=== PATIENT | female | born 1980 | race Caucasian/White ===

== ENCOUNTER 2018-03-11 18:40 | Emergency (ER) | payer OTHER ==
[~2018-03-11] VITALS: Ht 152.4 cm; Wt 70.3 kg
[2018-03-11 18:42] VITALS: BP_SYST 120
[2018-03-11] MEDS ORDERED: NACL 0.9% 1,000 ML IV ONE (19:00)
[2018-03-11 19:35] LABS: BASOPHILS # (AUTO) 0.1 K/uL (0.0-0.2); BASOPHILS % (AUTO) 1.6 % (0.0-2.0); EOSINOPHILS # (AUTO) 0.3 K/uL (0.0-0.4); HEMOGLOBIN 10.9 g/dL (12.0-16.0); LYMPHOCYTES # (AUTO) 1.5 K/uL (1.0-5.5); LYMPHOCYTES % (AUTO) 25.5 % (20.5-51.5); MEAN CORPUSCULAR HEMOGLOBIN 27 pg (27-31); MEAN CORPUSCULAR HGB CONC 33 % (32-36); MEAN CORPUSCULAR VOLUME 82 fL (79.0-98.0); MONOCYTES # (AUTO) 0.3 K/uL (0.0-1.0); MONOCYTES % (AUTO) 5.1 % (1.7-9.3); NEUTROPHILS # (AUTO) 3.5 K/uL (1.8-7.7); NEUTROPHILS % (AUTO) 62.8 % (40.0-70.0); PLATELET COUNT (AUTO) 280 K/uL (130-430); RED BLOOD CELL COUNT(AUTO) 4.04 MIL/uL (4.2-6.2); RED CELL DISTRIBUTION WIDTH 14.2 % (9.0-15.0); WHITE BLOOD COUNT (AUTO) 5.7 K/uL (4.8-10.8)
[2018-03-11 19:57] LABS: CREATININE 0.64 mg/dL (0.55-1.30); POTASSIUM 3.5 mmol/L (3.5-5.1)
[2018-03-11 20:03] LABS: ALBUMIN 3.8 g/dL (3.4-4.8); TOTAL BILIRUBIN 0.4 mg/dL (0.0-1.0)
[2018-03-11] MEDS ORDERED: ACETAMINOPHEN 500 MG TABLET PO ONE (21:30)
[2018-03-11 21:50] VITALS: BP_SYST 118
== END 2018-03-11 21:50 | disposition home or self-care (01) ==
LOC: SED 18:40
DX: T67.5XXA Heat exhaustion, unspecified, initial encounter (principal); S09.90XA Unspecified injury of head, initial encounter; R55 Syncope and collapse; J45.909 Unspecified asthma, uncomplicated; X30.XXXA Exposure to excessive natural heat, initial encounter; Y93.89 Activity, other specified; Y92.89 Other specified places as the place of occurrence of the external cause; Y99.8 Other external cause status
CPT/HCPCS: 36415; 70450; 71045; 80053; 82550; 85025; 93005; 96360; 99285; J7030

== ENCOUNTER 2018-03-18 18:08 | Inpatient (IN) | payer MEDICAID, OTHER ==
[~2018-03-18] VITALS: Ht 152.4 cm; Wt 69.4 kg
[2018-03-18 18:17] VITALS: BP_SYST 123
--- NOTE | 2018-03-18 18:17 | NUR ---
Placed in room 2. Placed on cardiac technologist, blood pressure machine and pulse oximeter. To gown for exam. Side rails up. Report given to Lisa ZAIDI.
--- NOTE | 2018-03-18 18:20 | NUR ---
Pt brought by self,A&Ox4, pt presents to ER with non-raditing chest tightness ,dizziness and palpitations since today, VS WNL, respirations even and unlabored, cap refill <3,VS WNL
--- NOTE | 2018-03-18 19:00 | NUR ---
Dr Cisneros at bedside examining patient
--- NOTE | 2018-03-18 19:15 | NUR ---
Medication reconciliation completed with information provided by Patient. Any prior medication reconciliation on file was reviewed and corrected.
[2018-03-18 19:19] LABS: BASOPHILS % (AUTO) 0.8 % (0.0-2.0); EOSINOPHILS # (AUTO) 0.1 K/uL (0.0-0.4); EOSINOPHILS % (AUTO) 1.6 % (0.0-4.0); HEMOGLOBIN 10.8 g/dL (12.0-16.0); LYMPHOCYTES % (AUTO) 19.5 % (20.5-51.5); MEAN CORPUSCULAR HEMOGLOBIN 27 pg (27-31); MEAN CORPUSCULAR HGB CONC 33 % (32-36); MEAN CORPUSCULAR VOLUME 81 fL (79.0-98.0); MONOCYTES # (AUTO) 0.3 K/uL (0.0-1.0); MONOCYTES % (AUTO) 5.9 % (1.7-9.3); NEUTROPHILS # (AUTO) 3.8 K/uL (1.8-7.7); NEUTROPHILS % (AUTO) 72.2 % (40.0-70.0); PLATELET COUNT (AUTO) 210 K/uL (130-430); RED BLOOD CELL COUNT(AUTO) 4.06 MIL/uL (4.2-6.2); RED CELL DISTRIBUTION WIDTH 14.6 % (9.0-15.0); WHITE BLOOD COUNT (AUTO) 5.2 K/uL (4.8-10.8)
--- NOTE | 2018-03-18 19:30 | NUR ---
Patient states she is full code.
[2018-03-18 19:34] LABS: CALCIUM 9.1 mg/dL (8.4-11.0); CREATININE 0.69 mg/dL (0.55-1.30); POTASSIUM 3.3 mmol/L (3.5-5.1)
--- NOTE | 2018-03-18 19:37 | NUR ---
Patient will be admitted to care of Dr. Yusuf. Admitted to Telemetry unit. Will go to room 130 A. Belongings list completed. Summary report printed. Report will be given at bedside.
[2018-03-18 19:39] LABS: TOTAL BILIRUBIN 0.2 mg/dL (0.0-1.0)
--- NOTE | 2018-03-18 20:27 | NUR ---
ADMISSION NOTE Received patient from ER via gurney. Patient admitted with diagnosis of Chest pain. Patient is awake, alert, oriented X 4. Patient oriented to hospital room, call light, toileting, pain management and safety-teach back done. Patient informed that DYAN Irwin will be her nurse and that her room number is 130-B. Personal belongings checked and Belongings List documented. Call light within reach.
[2018-03-18 20:40] VITALS: BP_SYST 114
[2018-03-18] MEDS ORDERED: POTASSIUM CHLORIDE 20 MEQ TAB.PRT.SR PO PRN (21:00)
[2018-03-18] MEDS ORDERED: ACETAMINOPHEN 325 MG TABLET PO PRN (21:00)
[2018-03-18] MEDS ORDERED: DOCUSATE SODIUM 100 MG CAPSULE PO PRN (21:00)
[2018-03-18] MEDS ORDERED: MORPHINE 2 MG/ML INJ. SYRINGE IVP PRN ×2 (21:00)
[2018-03-18] MEDS ORDERED: ONDANSETRON HCL 4 MG/2 ML VIAL IVP PRN (21:00)
[2018-03-18] MEDS ORDERED: LORazepam 2 MG/ML VIAL IVP PRN (21:00)
[2018-03-18] MEDS ORDERED: ZOLPIDEM TARTRATE 5 MG TABLET PO PRN (21:00)
[2018-03-18] MEDS ORDERED: MAGNESIUM SULFATE 50 ML IV PRN (21:00)
[2018-03-18] MEDS ORDERED: MUPIROCIN 2% TOPICAL OINTMENT 22 GM NS PRN (21:00)
--- NOTE | 2018-03-18 22:27 | NUR ---
CONSULTATION PAGED/CALLED Reason for Consultation: CHEST PAIN Person Who was Notified:NAM Consulting Physician: ZAID Head Turning Machine Operator Specialty: CARDIO Ordering Physician: UMAIR
--- NOTE | 2018-03-18 22:30 | NUR ---
Rounds/Pain mgmt/ K+ 3.3 Pt resting in bed c/o posterior headache 02/11 medicated with Tylenol PO as needed. Potassium 3.3 medicated with K-dur 40meq per md order. Heparin SQ given as ordered, explained to pt indication and possible side effect, pt verbalized understanding. Encouraged pt to use call light for assistance to bathroom, pt agreeable. Bed low/locked, Bed alarm on. Call light within reach. To monitor.
[2018-03-18] MEDS: HEPARIN SODIUM,PORCINE 5000 UNITS/ML VIAL SUBCUT SCH (22:33)
--- NOTE | 2018-03-19 00:15 | NUR ---
Rounds Pt asleep. No s/s distress or discomfort noted. Call light within reach. To monitor.
[2018-03-19 00:27] VITALS: BP_SYST 99
--- NOTE | 2018-03-19 04:20 | NUR ---
Rounds/Bathroom Pt awake, assisted to the bathroom. Pt voided. Pt denies any dizziness or sob. Call light within reach. Will continue to monitor.
--- NOTE | 2018-03-19 06:00 | NUR ---
Closing notes Pt awake. No s/s distress noted. Pt denies any pain at this time. IV L.AC 20G saline lock clear, patent. All needs met. Call light within reach. To endorse to am nurse.
[2018-03-19 06:50] LABS: ANION GAP 5 (5-15); CALCIUM 8.8 mg/dL (8.4-11.0); CHLORIDE 105 mmol/L (98-107); CREATININE 0.68 mg/dL (0.55-1.30); GLUCOSE 84 mg/dL (70-99); SODIUM SERUM 136 mmol/L (136-145); UREA NITROGEN, BLOOD 11 mg/dL (8-21)
[2018-03-19 06:51] LABS: GFR AFRICAN AMERICAN 126 mL/min (>90)
[2018-03-19 06:52] LABS: BASOPHILS # (AUTO) 0.2 K/uL (0.0-0.2); EOSINOPHILS # (AUTO) 0.3 K/uL (0.0-0.4); MONOCYTES # (AUTO) 0.3 K/uL (0.0-1.0); RED BLOOD CELL COUNT(AUTO) 4.38 MIL/uL (4.2-6.2); RED CELL DISTRIBUTION WIDTH 14.4 % (9.0-15.0)
[2018-03-19 07:06] LABS: BASOPHILS % (AUTO) 4.1 % (0.0-2.0); HEMATOCRIT 35.9 % (36-48); HEMOGLOBIN 12.1 g/dL (12.0-16.0); LYMPHOCYTES # (AUTO) 1.3 K/uL (1.0-5.5); LYMPHOCYTES % (AUTO) 32.5 % (20.5-51.5); MEAN CORPUSCULAR HEMOGLOBIN 28 pg (27-31); MEAN CORPUSCULAR HGB CONC 34 % (32-36); MEAN CORPUSCULAR VOLUME 82 fL (79.0-98.0); MONOCYTES % (AUTO) 7.2 % (1.7-9.3); NEUTROPHILS # (AUTO) 1.9 K/uL (1.8-7.7); NEUTROPHILS % (AUTO) 48.2 % (40.0-70.0); PLATELET COUNT (AUTO) 209 K/uL (130-430)
--- NOTE | 2018-03-19 07:25 | NUR ---
AM ROUNDS: PATIENT AWAKE ON THE BED. BEDSIDE REPORT GIVEN BY NIGHT NURSE ALCRIA. CALL LIGHT WITH IN REACH. BED LOCKED AT LOWEST POSITION. DENIES ANY CHEST PAIN THIS TIME.STABLE.
[2018-03-19 08:28] VITALS: BP_SYST 111
[2018-03-19] MEDS: HEPARIN SODIUM,PORCINE 5000 UNITS/ML VIAL SUBCUT SCH ×2 (08:34→20:28)
--- NOTE | 2018-03-19 08:37 | NUR ---
dvt: due heparin 5000 units subq given as ordered. no complications noted.
[2018-03-19] MEDS ORDERED: busPIRone HCL 5 MG TABLET PO ONE (11:00)
[2018-03-19 11:07] LABS: CHOLESTEROL 134 mg/dL (<200); HDL CHOLESTEROL 50 mg/dL (>55); LDL CHOLESTEROL 78 mg/dL (<100); TRIGLYCERIDES 59 mg/dL (30-150)
[2018-03-19 11:18] VITALS: BP_SYST 124
--- NOTE | 2018-03-19 12:12 | NUR ---
RN ROUNDS: PATIENT HAVING LUNCH. TOOK HER BUSPAR PO WITH OUT COMPLICATIONS,UNDERSTANDS THE INSTRUCTIONS.
[2018-03-19 15:05] VITALS: BP_SYST 121
--- NOTE | 2018-03-19 15:30 | NUR ---
RN ROUNDS: RESTING. NO COMPLAINED MADE. CONTINUE TO MONITOR FOR ANY CHEST PAIN.
--- NOTE | 2018-03-19 16:32 | NUR ---
Case mgt: Insurance changed to [employer] presumptive per Paty in admitting. SELINA ZAIDI
--- NOTE | 2018-03-19 18:40 | NUR ---
CLOSING NOTES: STABLE. PATIENT DENIES ANY CHEST PAIN. CALL LIGHT WITH IN REACH. BED LOCKED AT LOWEST POSITION.
--- NOTE | 2018-03-19 19:05 | NUR ---
OPENING NOTES Bedside report received from day shift nurse. Patient received lying in bed, watching TV, AOx4, denies any pain at this time. No s/s of acute distress noted. Breathing even and unlabored. Call light with patient, instructed to call for any assistance, patient verbalized understanding. Bed alarm is off per patient's request. Patient educated on its purpose but patient still refuses. Will continue to monitor.
[2018-03-19 20:00] VITALS: BP_SYST 100
[2018-03-19] MEDS: busPIRone HCL 5 MG TABLET PO SCH (20:26)
--- NOTE | 2018-03-19 21:00 | NUR ---
ROUNDS Patient in bed at this time, watching TV. No s/s of acute distress, patient denies any pain at this time. Breathing is even and unlabored. Call light with patient. All needs met at this time. Will continue to monitor.
--- NOTE | 2018-03-19 23:00 | NUR ---
ROUNDS Patient in bed sleeping at this time. No s/s of acute distress. Breathing is even and unlabored. Call light with patient. Will continue to monitor.
[2018-03-20 00:34] VITALS: BP_SYST 98
--- NOTE | 2018-03-20 01:00 | NUR ---
ROUNDS Patient in bed sleeping comfortably. No signs of discomfort noted. Chest rise and fall even bilaterally. Call light with patient. Will continue to monitor.
--- NOTE | 2018-03-20 03:00 | NUR ---
ROUNDS Patient in bed sleeping comfortably. No signs of discomfort noted. Chest rise and fall even bilaterally. Call light with patient. Bed alarm on. Will continue to monitor.
[2018-03-20 04:30] LABS: BASOPHILS # (AUTO) 0.1 K/uL (0.0-0.2); BASOPHILS % (AUTO) 2.2 % (0.0-2.0); EOSINOPHILS # (AUTO) 0.6 K/uL (0.0-0.4); EOSINOPHILS % (AUTO) 11.3 % (0.0-4.0); HEMATOCRIT 37.1 % (36-48); HEMOGLOBIN 12.3 g/dL (12.0-16.0); LYMPHOCYTES # (AUTO) 1.6 K/uL (1.0-5.5); LYMPHOCYTES % (AUTO) 31.1 % (20.5-51.5); MEAN CORPUSCULAR HEMOGLOBIN 27 pg (27-31); MEAN CORPUSCULAR HGB CONC 33 % (32-36); MEAN CORPUSCULAR VOLUME 82 fL (79.0-98.0); MONOCYTES # (AUTO) 0.4 K/uL (0.0-1.0); MONOCYTES % (AUTO) 7.3 % (1.7-9.3); NEUTROPHILS # (AUTO) 2.4 K/uL (1.8-7.7); NEUTROPHILS % (AUTO) 48.1 % (40.0-70.0); PLATELET COUNT (AUTO) 214 K/uL (130-430); RED BLOOD CELL COUNT(AUTO) 4.54 MIL/uL (4.2-6.2); RED CELL DISTRIBUTION WIDTH 14.4 % (9.0-15.0)
[2018-03-20 04:36] LABS: ANION GAP 8 (5-15); CALCIUM 8.8 mg/dL (8.4-11.0); CHLORIDE 104 mmol/L (98-107); CREATININE 0.71 mg/dL (0.55-1.30); GLUCOSE 84 mg/dL (70-99); POTASSIUM 3.8 mmol/L (3.5-5.1); SODIUM SERUM 138 mmol/L (136-145); UREA NITROGEN, BLOOD 15 mg/dL (8-21)
[2018-03-20 04:42] LABS: WHITE BLOOD COUNT (AUTO) 5.1 K/uL (4.8-10.8)
[2018-03-20 04:50] LABS: GFR AFRICAN AMERICAN 120 mL/min (>90)
--- NOTE | 2018-03-20 05:00 | NUR ---
ROUNDS Patient in bed sleeping at this time. No s/s of acute distress noted. Breathing is even and unlabored. Call light with patient. Bed alarm on. Will continue to monitor.
--- NOTE | 2018-03-20 06:58 | NUR ---
CLOSING NOTES Patient in bed sleeping at this time. No s/s of acute distress. No complaints of pain throughout shift. Breathing even and unlabored. All of patient's needs met throughout shift. Fall and safety precautions maintained throughout shift. Will continue to monitor until patient care is endorsed to oncoming day shift nurse.
--- NOTE | 2018-03-20 08:00 | NUR ---
AM ROUNDS: PATIENT SITTING ON THE CHAIR.DENIES ANY CHEST PAIN. WAITING FOR MD TO EVALUATE HER TODAY,POSSIBLE DC HOME WHEN STABLE.
[2018-03-20 08:05] VITALS: BP_SYST 114
[2018-03-20] MEDS: busPIRone HCL 5 MG TABLET PO SCH (08:48)
--- NOTE | 2018-03-20 08:49 | NUR ---
RN ROUNDS: Patient on the bed. Nuclear Medicine Medical Director came and cleared patient home.Waiting for the hospitalist to dc patient when stable.
--- NOTE | 2018-03-20 11:31 | NUR ---
DC ORDER: PATIENT SEEN BY DR BLOCK WITH ORDERS DC HOME AND F/U WITH PCP IN 1 WEEK.
[2018-03-20 12:25] VITALS: BP_SYST 106
[2018-03-20 12:45] VITALS: BP_SYST 106
--- NOTE | 2018-03-20 13:30 | NUR ---
HOME MEDS: SPOKE WITH DR BLOCK AND WILL CALL PREFERRED PHARMACY OF THE PATIENT WHICH IS [facility][phone],FOR [facility].
--- NOTE | 2018-03-20 13:35 | NUR ---
DC NOTES: TRANSITIONAL CARE FOLDER GIVEN TO PATIENT,PATIENT VERBALIZED UNDERSTANDING OF DC INSTRUCTIONS. INSTRUCTED PATIENT TO STREET LIGHT WIRER HER MEDS FOR ANXIETY AT [facility] [place](PATIENT'S PREFERRED PHARMACY).IV REMOVED BY AN ISAIAS,DRY GAUZE APPLIED.NO BLEEDING NOTED. PERSONAL BELONGINGS COMPLETED AND SEND HOME WITH THE PATIENT.PATIENT WAS ACCOMPANIED HOME BY HER FRIEND IN STABLE CONDITION.
== END 2018-03-20 13:35 | disposition home or self-care (01) | DRG 243 ==
LOC: SED 18:08 → STU 19:32
PROVIDERS: ADMIT General Practice; ATTEND General Practice
DX: K21.9 Gastro-esophageal reflux disease without esophagitis (principal); E87.6 Hypokalemia; R07.89 Other chest pain; F41.1 Generalized anxiety disorder; J45.909 Unspecified asthma, uncomplicated
CPT/HCPCS: 36415; 71045; 80048; 80053; 80061; 82550-TC; 83036; 83735-TC; 84484; 85025; 93005; 93306; 99285; J1644